=== PATIENT | male | born 1955 | race Caucasian/White ===

== ENCOUNTER 2018-07-05 06:39 | Inpatient (IN) ==
[2018-07-05] MEDS ORDERED: KETOROLAC 30 MG/ML VIAL IV STA (06:55)
[2018-07-05] MEDS ORDERED: OXYCODONE HCL IR 5 MG TAB (IMMEDIATE RELEASE) PO STA (06:55)
[2018-07-05] MEDS ORDERED: CLINDAMYCIN 600 MG in DEXTROSE 5% 50 ML IV SCH (07:00)
--- NOTE | 2018-07-05 07:09 | Emergency Department Note ---
History of Present Illness General Chief complaint: Infection Stated complaint: INFECTION WENT INTO EYE Time Seen by Provider: 07/05/18 06:48 History of Present Illness Maximum Pain Intensity: 8 62-year-old male presents to the ER after just being seen here 4 hours ago for a gum infection which has now spread up to his eye. He was informed that if it should spread up to his eye that he should come back. The patient states that the symptoms just initially started overnight. He has had this once before after a dental cleaning and he had a dental cleaning last Tuesday. The patient states that he has a loose left upper tooth and has known gum disease and food gets stuck in there and then he ends up with an abscess. The patient states that after he went home he tried to sleep but could not. He took hydrocodone without any relief of the pain. He then noticed that the swelling got much worse and was up to his eye and therefore came back to the emergency room. The patient denies any fever, visual changes, dizziness or headache. Home Medications Home Medications Medication Instructions Recorded Confirmed Type atorvastatin 80 mg PO DAILY 07/05/18 07/05/18 History clindamycin HCl 300 mg PO Q8H #29 cap 07/05/18 07/05/18 Rx lisinopril 40 mg PO DAILY 07/05/18 07/05/18 History metformin 1,000 mg PO DAILY 07/05/18 07/05/18 History metoprolol succinate 25 mg PO DAILY 07/05/18 07/05/18 History nifedipine 60 mg PO BID 07/05/18 07/05/18 History Allergies Allergy/AdvReac Type Severity Reaction Status Date / Time celecoxib Allergy Intermediate SOB/ANAPHYL Unverified 07/05/18 01:51 AXIS Penicillins Allergy Mild QUESTIONAL Verified 07/05/18 01:51 INTOLERANCE (PER MD) Past Med/Surg History Medical History HTN (hypertension) (Chronic) Diabetes (Chronic) NSTEMI (non-ST elevated myocardial infarction) (Resolved) Social History Feels Safe at Home: Yes Smoking Status: Never smoker Communication Ability: Effective Visual Impairment: No Limitations Hearing Ability: Normal Review of Systems A total of 10 systems reviewed and were otherwise negative Physical Exam Vital Signs Vital Signs - 24 hr 07/05/18 06:43 07/05/18 08:28 Temperature 37 C Temperature Source Oral Sepsis Recent Fever Within 48 Hours No Sepsis New/Unexplained Change in Mental Status No Sepsis Action Taken by Nursing No Action Required Pulse Rate 92 H Pulse Rate [Left Finger] 68 Pulse Rhythm [Left Finger] Regular Pulse Strength [Left Finger] Normal Respiratory Rate 20 16 Respiratory Effort / Characteristics Non-Labored Respiratory Depth Normal Respiratory Pattern Regular Blood Pressure 180/98 H Blood Pressure [Right Arm] 141/85 H Blood Pressure Mean 125 Blood Pressure Mean [Right Arm] 103 Blood Pressure Position [Right Arm] Sitting Pulse Oximetry 96 97 Oxygen Delivery Method Room Air GENERAL -62-year-old male appearing his stated age who is in no acute distress. MENTAL Status: Alert and oriented x3. HEAD - NC/AT. EYES - PERRL with EOMI bilaterally. MOUTH: Dental decay throughout mouth. There is erythema and edema of the upper gumline with no palpable abscess. NOSE -no erythema or edema noted. PHARYNX: No erythema or edema noted. Airway is adequate. FACE: The patient has diffuse swelling on the left side of the facial cheek up and including the infraorbital rim. This area is tender to palpation and slightly warm to the touch. NECK -supple, mild left anterior cervical lymphadenopathy is noted. No posterior nodes noted. Right side is nontender without lymphadenopathy. LUNGS -clear to auscultation without wheezes rales or rhonchi. CARDIAC: Regular rate and rhythm without murmur. Course Administered Medications Clindamycin Phosphate 600 mg/ (Dextrose) 54 mls @ 100 mls/hr IV ONE YOUSUF Stop: 07/15/18 06:59 Last Infusion: 07/05/18 07:49 Dose: 0 mls/hr Admin: 07/05/18 07:17 Dose: 100 mls/hr Ioversol (Optiray 320 100ml) 94 ml IV ONCE PRN PRN Reason: Interaction Checking Stop: 07/09/18 08:17 Last Admin: 07/05/18 08:21 Dose: 94 ml Discontinued Medications Ketorolac Tromethamine (Toradol) 30 mg IV NOW STA Stop: 07/05/18 06:56 Last Admin: 07/05/18 07:08 Dose: 30 mg Morphine Sulfate (Morphine Sulfate) 4 mg IV NOW STA Stop: 07/05/18 09:12 Last Admin: 07/05/18 09:15 Dose: 4 mg Oxycodone HCl (Roxicodone Immediate Rel) 10 mg PO NOW STA Stop: 07/05/18 06:56 Last Admin: 07/05/18 07:09 Dose: 10 mg Medical Decision Making Differential Diagnosis Cellulitis, orbital cellulitis, periapical abscess Medical Records Attestation: I reviewed the patient's medical records. Home Medications Current Medication List: was personally reviewed by me Laboratory Data Attestation: I reviewed the patient's lab results. Result diagrams: 07/05/18 07:05 07/05/18 07:05 Lab Results 07/05/18 07/05/18 Range/Units 07:05 07:05 WBC 11.44 H (4.8-10.8) K/uL RBC 4.52 L (4.7-6.1) M/uL Hgb 14.5 (14.0-18.0) g/dL Hct 41.9 L (42-52) % MCV 92.7 (80-100) fL MCH 32.1 (25-34) pg MCHC 34.6 (32-36) g/dL RDW Std Deviation 44.5 (36.4-46.3) fL RDW Coeff of Louie 13.1 (11.5-14.5) % Plt Count 193 (130-400) K/uL MPV 10.6 H (7.4-10.4) fL Immature Gran % (Auto) 0.2 % Neut % (Auto) 67.1 % Lymph % (Auto) 25.6 % [place] % (Auto) 5.9 % Eos % (Auto) 0.9 % Baso % (Auto) 0.3 % Immature Gran # (Auto) 0.02 (0.00-0.02) K/uL Neut # (Auto) 7.69 H (1.4-6.5) K/uL Lymph # (Auto) 2.93 (1.2-3.4) K/uL [place]man # (Auto) 0.67 H (0.11-0.59) K/uL Eos # (Auto) 0.10 (0-0.5) K/uL Baso # (Auto) 0.03 (0-0.2) K/uL Sodium 137 (136-145) mmol/L Potassium 3.8 (3.5-5.1) mmol/L Chloride 103 (98-107) mmol/L Carbon Dioxide 24 (21-32) mmol/L Anion Gap 9.0 (3-11) BUN 13 (7-18) mg/dl Creatinine 0.89 (0.6-1.4) mg/dl Est Cr Clr Drug Dosing 104.3 ml/min Est GFR ( Amer) 107.7 Est GFR (Non-Af Amer) 92.9 BUN/Creatinine Ratio 15.0 (10-20) Glucose 117 H (70-99) mg/dl Calcium 8.8 (8.5-10.1) mg/dl Phosphorus 3.7 (2.5-4.9) mg/dl Total Bilirubin 0.6 (0.2-1) mg/dl AST 41 H (15-37) U/L ALT 99 H (12-78) U/L Alkaline Phosphatase 41 L (45-117) U/L Total Protein 7.7 (6.4-8.2) gm/dl Albumin 3.9 (3.4-5.0) gm/dl Globulin 3.8 (2.5-4.0) gm/dl Albumin/Globulin Ratio 1.0 (0.9-2) Imaging Data Attestation: I personally reviewed and interpreted this imaging study as follows : My Impression: Periapical abscess Radiologist's Impression: CT facial bones w con HISTORY: 62 years-old Male Facial swelling acute facial swelling COMPARISON: None available TECHNIQUE: Multiple axial CT images of the facial bones were obtained following the intravenous administration of 94 mL Optiray 320 IV contrast. A dose lowering technique was used consistent with the principals of ALARA. FINDINGS: Moderate subcutaneous edema and skin thickening about the left infraorbital tissues, left cheek and left jaw. No drainable fluid collection. Additionally, there is enlargement and heterogeneous appearance of the left cheek musculature compatible with associated myositis. The parotid, submandibular and sublingual glands appear unremarkable. Pharyngeal fat planes are symmetric and well-maintained. [place] tonsil calcifications noted on the right. Patent airway. No prevertebral soft tissue swelling. Mildly prominent level 1 and level 2 lymph nodes are likely reactive. Bilateral globes and orbits are unremarkable. The imaged intracranial structures demonstrate no acute abnormality. Extensive mixed plaque formation about the bilateral carotid bulbs results in less than 50% stenosis on the left and approximately 70% stenosis on the right. Multilevel facet arthrosis with spondylitic spurring of the cervical spine resulting in multilevel foraminal narrowing. Mastoid air cells and middle ear cavities are clear. Mild mucosal thickening about the paranasal sinuses. No acute facial bone fracture. Multifocal odontogenic disease. Large periapical cyst formation with associated anterior cortical dehiscence involves the left first maxillary bicuspid. Small adjacent peripheral enhancing abscess is noted measuring up to 1.3 cm. With additional periapical cyst formation about the left first maxillary molar. IMPRESSION: 1. Odontogenic disease with large periapical cyst and associated anterior cortical dehiscence involving the left first maxillary bicuspid. Small adjacent peripherally enhancing 1.3 cm abscess. 2. Moderate cellulitis changes about the left face extending from the infraorbital tissues into the left cheek and left jaw. Additionally, there is associated infectious or inflammatory myositis about the left cheek musculature. 3. Mildly prominent level I and level II lymph nodes, likely reactive. 4. Mild paranasal sinus disease. The above report was generated using voice recognition software. It may contain grammatical, syntax or spelling errors. Electronically signed by: Cesar Del Rio M.D. 07/05/2018 8:42 AM Blood Pressure Blood Pressure Findings: Elevated blood pressure MDM Narrative Patient was evaluated. The patient's EMR medication list were reviewed. The patient is a known diabetic. His diabetes is well controlled on metformin. IV access was obtained. CBC and differential and renal profile was ordered. The patient was given clindamycin 600 mg IV. He had already received 300 mg 4 hours ago when he was in the emergency room. Patient was also given Toradol 30 mg IV. The patient does have an allergy to Celexa but states he tolerates ibuprofen, Aleve. The patient was also given OxyIR [address] for pain. CT of the facial bones with IV contrast was ordered to evaluate for abscess/ cellulitis. Labs are reviewed. The patient's white count was slightly elevated at 11,000. Glucose was 117. LFTs were only slightly elevated otherwise labs were unremarkable. CT revealed a large periapical abscess, cellulitis and myositis. I consulted Dr. Olivarez who is willing to see the patient in consult after admission. [facility] was consulted for admission. The patient was informed of the findings and treatment plan. Impression & Plan Periapical abscess with facial involvement Discharge Plan Visit Data Chief Complaint: Infection Stated Complaint: INFECTION WENT INTO EYE ED Provider: Emi Dobbins ED Midlevel Provider: Mehnaz Mayers Discharge Problem: Periapical abscess with facial involvement Patient Disposition: Being Evaluated by Hospitalist Condition: Good Forms Stand Alone Forms: My [facility] Prescriptions Prescriptions: No Action atorvastatin 80 mg tablet 80 mg PO DAILY RF: 0 nifedipine 60 mg tablet extended release 24hr 60 mg PO BID RF: 0 metoprolol succinate 25 mg tablet extended release 24 hr 25 mg PO DAILY RF: 0 lisinopril 40 mg tablet 40 mg PO DAILY RF: 0 metformin 1,000 mg tablet 1,000 mg PO DAILY RF: 0 clindamycin HCl 300 mg capsule 300 mg PO Q8H Qty: 29 RF: 0 Referrals Referrals: Kd Wylie [Primary Care Provider] -
[2018-07-05 07:27] LABS: Basophils # (auto) 0.03 K/uL (0-0.2); Basophils % (auto) 0.3 %; Eosinophils % (auto) 0.9 %; Hematocrit (blood only) 41.9 % (42-52); Hemoglobin 14.5 g/dL (14.0-18.0); Immature Granulocytes # (auto) 0.02 K/uL (0.00-0.02); Immature Granulocytes % (auto) 0.2 %; Lymphocytes # (auto) 2.93 K/uL (1.2-3.4); Lymphocytes % (auto) 25.6 %; Mean Corpuscular Hgb Conc 34.6 g/dL (32-36); Mean Corpuscular Volume 92.7 fL (80-100); Mean Platelet Volume 10.6 fL (7.4-10.4); Monocytes # (auto) 0.67 K/uL (0.11-0.59); Monocytes % (auto) 5.9 %; Neutrophils # (auto) 7.69 K/uL (1.4-6.5); Neutrophils % (auto) 67.1 %; Platelet Count 193 K/uL (130-400); RDW Coefficient of Variation 13.1 % (11.5-14.5); RDW Standard Deviation 44.5 fL (36.4-46.3); Red Blood Count 4.52 M/uL (4.7-6.1); White Blood Count 11.44 K/uL (4.8-10.8)
[2018-07-05 07:57] LABS: Albumin Level 3.9 gm/dl (3.4-5.0); Calcium 8.8 mg/dl (8.5-10.1); Creatinine Clr Calc Pharmacy 104.3 ml/min; Est GFR (African American) 107.7; Est GFR (Non-African American) 92.9; Potassium 3.8 mmol/L (3.5-5.1)
[2018-07-05 08:00] LABS: Bilirubin,Total 0.6 mg/dl (0.2-1); Globulin 3.8 gm/dl (2.5-4.0); Phosphorus 3.7 mg/dl (2.5-4.9); Total Protein 7.7 gm/dl (6.4-8.2)
[2018-07-05] MEDS ORDERED: IOVERSOL 100ml IV PRN (08:18)
--- NOTE | 2018-07-05 08:44 | CT Scan Report ---
CT facial bones w con HISTORY: 62 years-old Male Facial swelling acute facial swelling COMPARISON: None available TECHNIQUE: Multiple axial CT images of the facial bones were obtained following the intravenous admin istration of 94 mL Optiray 320 IV contrast. A dose lowering technique was used consistent with the pr incipals of ALARA. FINDINGS: Moderate subcutaneous edema and skin thickening about the left infraorbital tissues, left cheek and l eft jaw. No drainable fluid collection. Additionally, there is enlargement and heterogeneous appearan ce of the left cheek musculature compatible with associated myositis. The parotid, submandibular and sublingual glands appear unremarkable. Pharyngeal fat planes are symmetric and well-maintained. [place] tonsil calcifications noted on the right. Patent airway. No prevertebral soft tissue swelling. Mildly prominent level 1 and level 2 lymp h nodes are likely reactive. Bilateral globes and orbits are unremarkable. The imaged intracranial st ructures demonstrate no acute abnormality. Extensive mixed plaque formation about the bilateral carot id bulbs results in less than 50% stenosis on the left and approximately 70% stenosis on the right. Multilevel facet arthrosis with spondylitic spurring of the cervical spine resulting in multilevel fo raminal narrowing. Mastoid air cells and middle ear cavities are clear. Mild mucosal thickening about the paranasal sinuses. No acute facial bone fracture. Multifocal odontogenic disease. Large periapic al cyst formation with associated anterior cortical dehiscence involves the left first maxillary bicu spid. Small adjacent peripheral enhancing abscess is noted measuring up to 1.3 cm. With additional pe riapical cyst formation about the left first maxillary molar. IMPRESSION: 1. Odontogenic disease with large periapical cyst and associated anterior cortical dehiscence involvi ng the left first maxillary bicuspid. Small adjacent peripherally enhancing 1.3 cm abscess. 2. Moderate cellulitis changes about the left face extending from the infraorbital tissues into the l eft cheek and left jaw. Additionally, there is associated infectious or inflammatory myositis about t he left cheek musculature. 3. Mildly prominent level I and level II lymph nodes, likely reactive. 4. Mild paranasal sinus disease. The above report was generated using voice recognition software. It may contain grammatical, syntax o r spelling errors. Electronically signed by: Cesar Del Rio M.D. 07/05/2018 8:42 AM
[2018-07-05] MEDS ORDERED: MoRPHine SULFATE 4 MG/ML 1 ML CARP\\VIAL IV STA (09:11)
[2018-07-05] MEDS ORDERED: KETOROLAC TROMETHAMINE 15 MG/ML VIAL IV PRN (10:41)
[2018-07-05] MEDS ORDERED: CONSULT PHARMACY STA ×2 (10:41→13:07)
--- NOTE | 2018-07-05 10:46 | History & Physical Report ---
Date of Service July 05, 2018 Assessment & Plan (1) Periapical abscess with facial involvement: This is a 62yo M with a PMH of HTN, DM II, CAD (s/p stents to LAD and RCA in 2014 at [place]), alcohol and tobacco dependence who presents with worsening facial swelling amd was found to have periapical abscess with cellulitic changes to face. -Seen early this morning at 0100 in ED and given PO Clinda at discharge -Returned a few hours later with worsening edema, facial pain -CT of face with odontogenic disease with large periapical cyst and associated anterior cortical dehiscence involving the left first maxillary bicuspid. Small adjacent peripherally enhancing 1.3 cm abscess. Moderate cellulitis changes about the left face extending from the infraorbital tissues into the left cheek and left jaw. Additionally, there is associated infectious or inflammatory myositis about the left cheek musculature -Hemodynamically stable, afebrile -Dr Olivarez was called by ED provider and will see patient later today -Received dose of IV Clinda in ED -Due to concern for possible Clinda allergy, will continue abx coverage with Vanco, Levaquin and Flagyl -Keep NPO for now, IV fluids -Pain control (2) CAD (coronary artery disease): H/o NSTEMI with stents x 2 in [place] in 2014 -Continue Toprol, aspirin, statin (3) Chronic back pain: Takes Hydrocodone 5mg QID PRN at home (4) Diabetes mellitus, type II: Most recent a1c of 6.4 in July 2017 -Will repeat a1c -Hold metformin -SSI while NPO -BSG checks AC HS (5) HTN (hypertension): Normotensive -Took AM lisinopril and nifedipine prior to arrival (6) Alcohol dependence: Endorses 3-4 glasses of wine daily -Possible etoh withdrawal during previous admission -At risk protocol, MV, folic acid, thiamine DVT Ppx: SCDs for now Code status: DNR per discussion with patient, living will PCP: Zachary Dispo: Plan to return home once medically stable. Patient seen in collaboration with Dr. Gil. Please see addendum. History of Present Illness Chief Complaint: Facial swelling Primary Care Provider: Kd Wylie This is a 62yo M with a PMH of HTN, DM II, CAD (s/p stents to LAD and RCA in 2014 at [place]), alcohol and tobacco dependence who presents with worsening facial swelling. Had dental cleaning last week and developed pain in L upper molar over the weekend. Started to notice swelling in gums and left cheek yesterday afternoon. Came into ED at 0100 with swelling to gums and left side of face and was discharged home on PO Clinda with instruction to return if condition worsens. Returned this morning at 0630 with swelling extending to R eye and constant tight facial pain. Denies fevers, chills, chest pain, shortness of breath or drainage. CT of face with odontogenic disease with large periapical cyst and associated anterior cortical dehiscence involving the left first maxillary bicuspid. Small adjacent peripherally enhancing 1.3 cm abscess. Moderate cellulitis changes about the left face extending from the infraorbital tissues into the left cheek and left jaw. Additionally, there is associated infectious or inflammatory myositis about the left cheek musculature. Hemodynamically stable, afebrile. Dr Olivarez was called by ED provider and will see patient later today. Received dose of IV Clinda. Has allergy to PCN (rash as a child). Allergies Allergy/AdvReac Type Severity Reaction Status Date / Time celecoxib Allergy Intermediate SOB/ANAPHYL Unverified 07/05/18 01:51 AXIS Penicillins Allergy Mild QUESTIONAL Verified 07/05/18 01:51 INTOLERANCE (PER MD) Home Medications Home Medications Medication Instructions Recorded Confirmed Type aspirin 81 mg PO DAILY 07/05/18 07/05/18 History atorvastatin 80 mg PO HS 07/05/18 07/05/18 History clindamycin HCl 300 mg PO Q8H #29 cap 07/05/18 07/05/18 Rx hydrocodone-acetaminophen 1 tab PO QID PRN 07/05/18 07/05/18 History lisinopril 40 mg PO DAILY 07/05/18 07/05/18 History metformin 1,000 mg PO DAILY 07/05/18 07/05/18 History metoprolol succinate 25 mg PO DAILY 07/05/18 07/05/18 History nifedipine 60 mg PO BID 07/05/18 07/05/18 History Past Med/Surg History Medical History Chronic back pain (Chronic) CAD (coronary artery disease) (Chronic) Diabetes mellitus, type II (Chronic) HTN (hypertension) (Chronic) NSTEMI (non-ST elevated myocardial infarction) (Resolved) Surgical History History of partial colectomy (Resolved) Family History Father CAD (coronary artery disease) CHF (congestive heart failure) Mother Breast cancer Colon cancer Social History Current Living Situation: Spouse Other Information That Helps Us Care for You: No Feels Safe at Home: Yes Safety Concerns: Feels Safe At This Time Smoking Status: Current every day smoker Tobacco Type: cigarettes Cigarettes per Day: 30 Do You Dip or Chew Tobacco: No Second Hand Exposure: No Tobacco Cessation Education Requested by Patient: No Hx Alcohol Use: Yes Alcohol type: wine Alcohol Intake Frequency: 3 or more drinks per day Hx Substance Use: No Beliefs That Will Affect Care: None Preferred Language: Pry[place]in[place] Communication Ability: Effective Enrollment Eligibility Representative Required: No Review of Systems All systems reviewed & are unremarkable except as noted in HPI & below Physical Exam 2 Vital Signs (Past 24 Hours): Last Vital Signs Temp 37 C 07/05/18 06:43 Pulse 68 07/05/18 08:28 Resp 16 07/05/18 08:28 BP 141/85 H 07/05/18 08:28 Pulse Ox 97 07/05/18 08:28 Physical Exam: General Appearance: WD/WN, no acute distress Head: normocephalic, atraumatic Eyes: normal inspection, PERRL, EOMI ENT: hearing grossly normal, poor dentition, swelling from left side of mouth to cheek and up and including the infraorbital rim. Warm and erythematous, no drainage. Neck: supple, no JVD, L cervical and mandibular lymphadenopathy Respiratory/Chest: lungs clear to auscultation. No wheezes, rales or rhonci. No respiratory distress or accessory muscle use Cardiovascular: regular rate, rhythm, no murmur, normal peripheral pulses Abdomen/GI: normal bowel sounds, soft, non-tender to palpation Extremities/Musculoskelatal: normal inspection, no calf tenderness, normal capillary refill, no pedal edema Neurologic/Psych: alert, normal mood/affect, oriented x 3 Skin: normal color, warm/dry. Results & Data Laboratory Results Short CBC 07/05/18 Range/Units 07:05 WBC 11.44 H (4.8-10.8) K/uL Hgb 14.5 (14.0-18.0) g/dL Hct 41.9 L (42-52) % Plt Count 193 (130-400) K/uL BMP 07/05/18 07:05 Sodium 137 Potassium 3.8 Chloride 103 Carbon Dioxide 24 BUN 13 Creatinine 0.89 Glucose 117 H Calcium 8.8 Liver Function 07/05/18 Range/Units 07:05 Total Bilirubin 0.6 (0.2-1) mg/dl AST 41 H (15-37) U/L ALT 99 H (12-78) U/L Alkaline Phosphatase 41 L (45-117) U/L Albumin 3.9 (3.4-5.0) gm/dl Diagnostic Findings Face CT: IMPRESSION: 1. Odontogenic disease with large periapical cyst and associated anterior cortical dehiscence involving the left first maxillary bicuspid. Small adjacent peripherally enhancing 1.3 cm abscess. 2. Moderate cellulitis changes about the left face extending from the infraorbital tissues into the left cheek and left jaw. Additionally, there is associated infectious or inflammatory myositis about the left cheek musculature. 3. Mildly prominent level I and level II lymph nodes, likely reactive. 4. Mild paranasal sinus disease. Supervising Physician Co-Signing Physician Notes Patient is a 62 yr male with history of DM II, CAD, alcohol/Tobacco use and other problems presents with history of ongoing tooth pain since last Tuesday and currently has left sided facial swelling, pain and left eye pressure like sensation. He had dental cleaning 1 week ago. Patient has poor dental hygiene. Facial CT is suggestive of Odontogenic disease with large periapical cyst, involvement of left first maxillary bicuspid. Also noted small adjacent peripherally enhancing 1.3 cm abscess., Moderate cellulitis. Patient also reports mild trouble with swallowing because of the swelling. Denies odynophgia , change in vision, chest pain, dyspnea. On Exam patient is moderately built, no apparent distress, + Poor oral hygiene, Left facial swelling, +tender, mild erythema, lungs CTA, S2, S2, No murmur, Abd soft, no focal deficits, no pedal edema. Patient is thought to have Periapical abscess/Facial cellulitis secondary to poor oral hygiene. Patient will be kept NPO, start on IV fluids, IV Abx. Maxillofacial surgery is consulted. Pain control. Hold Aspirin for possible procedure today. I personally reviewed the record. Patient is interviewed and examined at bedside. Patient's care is coordinated with Anna Loving PA-C. Please refer to the documentation above for details of patient's presentation and for discussion of other issues.
[2018-07-05] MEDS ORDERED: VANCOMYCIN CONSULT ACTIVE PRN (11:22)
[2018-07-05] MEDS ORDERED: metroNIDAZOLE 500 MG/100 ML BAG IV ONE (11:30)
[2018-07-05] MEDS ORDERED: VANCOMYCIN HCL 2,500 MG in SODIUM CHLORIDE 0.9% 500 ML IV ONE (11:30)
[2018-07-05] MEDS ORDERED: LEVOFLOXACIN/D5W 500 MG/100 ML BAG IV ONE (11:30)
[2018-07-05] MEDS ORDERED: ONDANSETRON INJ 2 MG/ML 2 ML VIAL IV PRN (12:07)
[2018-07-05] MEDS ORDERED: MoRPHine SULFATE 2 MG/ML CARP IV PRN ×2 (12:07→12:18)
[2018-07-05] MEDS ORDERED: LORazepam 1 MG TAB PO PRN (12:16)
[2018-07-05] MEDS ORDERED: GLUCAGON FOR INJ 1 MG VIAL SQ PRN (12:19)
[2018-07-05] MEDS ORDERED: CARBOHYDRATES FOR HYPOGLYCEMIA PO PRN (12:19)
[2018-07-05] MEDS ORDERED: GLUCOSE 40% GEL 15 GM TUBE PO PRN (12:19)
[2018-07-05] MEDS ORDERED: DEXTROSE 50% 50 ML SYRINGE IV PRN (12:19)
[2018-07-05] MEDS ORDERED: GLUCOSE 10 TABS/TUBE PO PRN (12:19)
[2018-07-05] MEDS ORDERED: MoRPHine SULFATE 4 MG/ML 1 ML CARP\\VIAL ONE (13:06)
[2018-07-05] MEDS: SODIUM CHLORIDE 0.9% 1000ML 1,000 ML IV SCH ×2 (13:12→21:40)
[2018-07-05] MEDS ORDERED: DAPTOMYCIN CONSULT ACTIVE PRN (14:12)
--- NOTE | 2018-07-05 14:27 | Infectious Disease Consult ---
Date of Consultation July 05, 2018 Assessment & Plan (1) Periapical abscess with facial involvement: no contraindication to Dapto use, suggest Dapto and IV clinda. with h/o etoh abuse, flagyl secondary choice for anaerobic coverage. follow cultures, warm compress to area. surgery eval pending. (2) Facial cellulitis: History of Present Illness Attending Physician: Elian Gil MD pt admitted with worsening left sided facial pain and swelling. pt had dental cleaning last Tuesday, stated left facial pain began Tuesday and worsened through weekend. yesterday evening he noted swelling, came to Er, was d/c on clinda for facial cellulitis, did not take abx post d/c but had increased pain and swelling and returned to ER hours later, ct showed maxillary erosion and abscess with diffuse facial cellulitis. Pt was placed on vanco, levaquin and woodson. tolerating well. ID consulted for Dapto approval. subjective fevers at home , no fever since admission. no n/v/d/abd pain, no drainage in mouth. no maki, no visual changes. allergy to pcn only. states increased pain from admission but otherwise no complaints. Surgery eval pending. Allergies Allergy/AdvReac Type Severity Reaction Status Date / Time celecoxib Allergy Intermediate SOB/ANAPHYL Unverified 07/05/18 01:51 AXIS Penicillins Allergy Mild QUESTIONAL Verified 07/05/18 01:51 INTOLERANCE (PER MD) Home Medications Home Medications Medication Instructions Recorded Confirmed Type aspirin 81 mg PO DAILY 07/05/18 07/05/18 History atorvastatin 80 mg PO HS 07/05/18 07/05/18 History clindamycin HCl 300 mg PO Q8H #29 cap 07/05/18 07/05/18 Rx hydrocodone-acetaminophen 1 tab PO QID PRN 07/05/18 07/05/18 History lisinopril 40 mg PO DAILY 07/05/18 07/05/18 History metformin 1,000 mg PO DAILY 07/05/18 07/05/18 History metoprolol succinate 25 mg PO DAILY 07/05/18 07/05/18 History nifedipine 60 mg PO BID 07/05/18 07/05/18 History Patient History Medical History Chronic back pain (Chronic) CAD (coronary artery disease) (Chronic) Diabetes mellitus, type II (Chronic) HTN (hypertension) (Chronic) NSTEMI (non-ST elevated myocardial infarction) (Resolved) Surgical History History of partial colectomy (Resolved) Family History Father CAD (coronary artery disease) CHF (congestive heart failure) Mother Breast cancer Colon cancer Social History Current Living Situation: Spouse Other Information That Helps Us Care for You: No Feels Safe at Home: Yes Safety Concerns: Feels Safe At This Time Smoking Status: Current every day smoker Tobacco Type: cigarettes Cigarettes per Day: 30 Do You Dip or Chew Tobacco: No Second Hand Exposure: No Tobacco Cessation Education Requested by Patient: No Hx Alcohol Use: Yes Alcohol type: wine Alcohol Intake Frequency: 3 or more drinks per day Hx Substance Use: No Beliefs That Will Affect Care: None Preferred Language: Afghan Communication Ability: Effective Comparison Shopper Required: No Review of Systems all remaining ros reviewed and are negative Physical Exam 2 Vital Signs (Past 24 Hours): Last Vital Signs Temp 36.6 C 07/05/18 12:07 Pulse 67 07/05/18 12:07 Resp 18 07/05/18 12:07 BP 138/82 07/05/18 12:07 Pulse Ox 92 07/05/18 12:07 Constitutional: WD/WN, vitals as above Eyes: PERRL, conjunctivae normal, anicteric sclerae ENMT: Nose: + facial exam abnormality, + face asymmetric, + facial edema and + facial tenderness; nasal mucous membranes not dry Mouth: + oropharynx abnormality Neck: normal visual inspection Respiratory: normal respiratory effort, lungs clear to auscultation Cardiovascular: RRR, no murmur, no edema Gastrointestinal (Abdomen): normal bowel sounds, soft, nontender, no hepatosplenomegaly Musculoskeletal: no cyanosis or clubbing, extremities motor strength 5/5 Skin: no rashes, warm and dry left face with increased non pitting edema, warmth, erythema, no drainage, emir orbial edema, tender to palpation Psychiatric: A+Ox3, euthymic affect
[2018-07-05] MEDS: DAPTOmycin 300 MG in SYRINGE 0 ML IV SCH (15:28)
[2018-07-05] MEDS ORDERED: INSULIN ASPART 100 UNITS/ML 3 ML PEN SC SCH (16:30)
[2018-07-05] MEDS: KETOROLAC 30 MG/ML VIAL IV PRN ×2 (17:21→23:37)
[2018-07-05] MEDS: INSULIN ASPART 100 UNITS/ML 3 ML PEN SC SCH ×2 (17:55→23:45)
[2018-07-05] MEDS: metroNIDAZOLE 500 MG/100 ML BAG IV SCH (19:46)
[2018-07-05] MEDS ORDERED: ATORVASTATIN 40 MG TAB PO SCH (21:00)
[2018-07-05] MEDS: NIFEdipine EXTENDED REL 30 MG TABCR PO SCH (21:41)
--- NOTE | 2018-07-05 23:16 | Consultation Report ---
DATE OF CONSULTATION: 07/05/2018 HISTORY: Darren is a 62-year-old white male who presented to the Emergency Room early this morning with a left facial cellulitis. At the time that he was evaluated, there was very mild swelling, but there was some intense pain. The patient was not on any antibiotics after having a dental cleaning approximately 1 week ago until the Emergency Room staff placed him on antibiotics. He was then discharged. Approximately 4 hours later, the patient returned to the Emergency Room with acute swelling of the left cheek and periorbital area with a lot of edema to the lower eyelid and upper eyelid. The patient was in a great deal of pain. He had a lot of swelling under his upper left lip as well as the cheek. Because of the very rapid increase in swelling, a CT scan was taken and this showed a nice size fluid collection, i.e., abscess of the left cheek, most likely coming from infected upper teeth #12 and #13. The patient was admitted to the hospitalist service and I was consulted to evaluate Mr. Cortes. I saw Mr. Cortes in room 288 at approximately 5:15 p.m. on 07/05/2018. The patient was complaining of pain on a scale of 1-10 of about a 9. He was being kept comfortable with medication. The patient is on IV antibiotics and it is significant that he is allergic to penicillin and has a history of diabetes which is controlled by oral medications. He told me that his A1c that was done last year was running around 6-6.2. An A1c is ordered for tomorrow. I discussed with the patient that we will need to take him to the operating room, place him under general anesthesia, do a drainage of the left cheek abscess, as well as extracting the teeth #12 and #13. I will also be draining a subperiosteal abscess involving the area between tooth #10 and tooth #14. The whole mucobuccal fold is quite edematous and painful. The patient does have some trismus, due to the infection he cannot close his teeth together, and he is in distress. I discussed the case with the hospitalist enhanced environmental operator. He is aware that we will be doing the operation tomorrow morning. I am not sure of the time yet as I will find out when I call the OR tomorrow morning at approximately 7:00 a.m. At that time, the I and D will be performed under general anesthesia. The patient would then go back to the room where he would continue to have his IV antibiotics and after approximately 12-24 hours, if he shows improvement, we will then be able to send him home on oral antibiotics with followup. At this time, the consent was signed. The patient has a very good understanding of what needs to be done tomorrow morning and he is aware of the procedure for tomorrow morning. The patient gives a history of having some coronary artery disease where he had 2 stents placed at [facility] in 2014. He gives a history of chronic back pain. He is a type 2 diabetic, where his last A1c was 6.4. He is on metformin, which is being held at the present time since he is n.p.o. His blood pressure is relatively normal. He is on blood pressure medication for that. 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 He drinks about 3-4 glasses of wine daily. It is at this time that the patient will be evaluated by the hospitalist as well as through my service to ensure that the infection is adequately drained and that he is controlled on the antibiotics. A CT scan was taken and demonstrated the abscess formation of the left cheek, which we will drain tomorrow. At this time, I find the patient to be stable to undergo the procedure tomorrow and then we will follow him to ensure that the infection is well controlled. I will have his dentist make sure that up to date dental X rays are taken or if done reviewed to insure no other teeth are in need of extractions. Moris understands we need to drain the infection, get the teeth out, follow up with me and his general dentist to ensure that his facial infection is well controlled and all teeth are free of infection. Thank you very much for allowing me to participate in the care of your patients. I will follow the patient with you and plan for discharge with oral antibiotics and arrange for follow up postoperatively with me and his dentist. LUKE
[2018-07-06] MEDS: metroNIDAZOLE 500 MG/100 ML BAG IV SCH ×3 (04:59→20:43)
[2018-07-06 05:46] LABS: Hemoglobin 13.6 g/dL (14.0-18.0); Mean Corpuscular Volume 93.9 fL (80-100); Mean Platelet Volume 10.3 fL (7.4-10.4); Platelet Count 159 K/uL (130-400); RDW Coefficient of Variation 13.2 % (11.5-14.5); RDW Standard Deviation 44.8 fL (36.4-46.3); Red Blood Count 4.26 M/uL (4.7-6.1); White Blood Count 8.41 K/uL (4.8-10.8)
[2018-07-06 06:07] LABS: Estimated Average Glucose 140 mg/dl
[2018-07-06 06:16] LABS: BUN Creatinine Ratio 13.8 (10-20); Calcium 8.9 mg/dl (8.5-10.1); Creatinine Clr Calc Pharmacy 128.6 ml/min; Est GFR (African American) 117.5; Est GFR (Non-African American) 101.4
[2018-07-06] MEDS: INSULIN ASPART 100 UNITS/ML 3 ML PEN SC SCH ×3 (06:51→17:54)
[2018-07-06] MEDS: KETOROLAC 30 MG/ML VIAL IV PRN (07:49)
[2018-07-06] MEDS: SODIUM CHLORIDE 0.9% 1000ML 1,000 ML IV SCH ×2 (07:56→16:18)
--- NOTE | 2018-07-06 08:00 | Anesthesiology Consultation ---
Date of Service July 06, 2018 Assessment & Plan (1) Encounter for pre-operative examination: Chart Review Chart Review: Acceptable Risk for Surgery and Patient NOT seen in Pre Admission Testing Pt denies any recent cardiac issues since his stents placement in 2014. Has been active, playing tennis, without FAY, CP. Has never had to use his NTG. No recent CP, SOB, GERD syptoms or n/v. Consults Requested none Pt has been evaluated by ID and currently on antibiotics for his facial cellulitis ASA [id number] Proposed Anesthesia Anesthesia Type: General Risk / Benefits Reviewed With: PT / POA / Parent / Guardian, Accepts Plan and Informed Consent Obtained Additional Comments: Plan of anesthesia including possible awake fiberoptic intubation was explained to patient. All risks/benefits were explained and all questions were anwered. Consent was signed. NPO Date Last Intake of Fluids: 07/05/18 Time Last Intake of Fluids: 22:00 Date Last Intake of Solids: 07/04/18 Time Last Intake of Solids: 18:30 History Surgery Operation Date: 07/06/18 11:40 Proposed Procedures p 2 Teeth Extractions - Raulito Olivarez DMD s Left Face Incision and Drainage - Raulito Olivarez DMD Height/Weight Height: 5 ft 10 in Weight: 98.1 kg Allergies Allergy/AdvReac Type Severity Reaction Status Date / Time celecoxib Allergy Intermediate SOB/ANAPHYL Unverified 07/05/18 01:51 AXIS Penicillins Allergy Mild QUESTIONAL Verified 07/05/18 01:51 INTOLERANCE (PER MD) Medications Home Medications Medication Instructions Recorded Confirmed Last Taken aspirin 81 mg PO DAILY 07/05/18 07/05/18 Unknown atorvastatin 80 mg PO HS 07/05/18 07/05/18 Unknown clindamycin HCl 300 mg PO Q8H #29 cap 07/05/18 07/05/18 Unknown hydrocodone-acetaminophen 1 tab PO QID PRN 07/05/18 07/05/18 Unknown lisinopril 40 mg PO DAILY 07/05/18 07/05/18 Unknown metformin 1,000 mg PO DAILY 07/05/18 07/05/18 Unknown metoprolol succinate 25 mg PO DAILY 07/05/18 07/05/18 Unknown nifedipine 60 mg PO BID 07/05/18 07/05/18 Unknown Active Medications Generic Name Dose Route Start Last Admin Trade Name Freq PRN Reason Stop Dose Admin Folic Acid 1 mg 07/06/18 09:00 07/06/18 09:19 Folvite PO 08/05/18 08:59 Not Given QAM YOUSUF Metronidazole 500 mg in 100 mls @ 100 mls/hr 07/05/18 20:00 07/06/18 11:39 Flagyl IV 07/15/18 19:59 100 mls/hr Q8H YOUSUF Administration Sodium Chloride 1,000 mls @ 100 mls/hr 07/05/18 12:07 07/06/18 07:56 Nss 1000ml IV 08/04/18 12:06 100 mls/hr .Q10H YOUSUF Administration Daptomycin 300 mg/ Syringe 6 mls @ 0 mls/min 07/05/18 15:00 07/05/18 15:28 IV 07/15/18 14:59 3 mls/min DAILY@1500 YOUSUF Administration Protocol Insulin Aspart 0 units 07/05/18 18:00 07/06/18 12:00 Novolog Flexpen SC 08/04/18 17:59 Not Given Q6 YOUSUF Ketorolac Tromethamine 30 mg 07/05/18 10:42 07/06/18 07:49 Toradol IV 07/10/18 10:40 30 mg Q6H PRN Administration Pain Lisinopril 40 mg 07/06/18 09:00 07/06/18 09:19 Zestril PO 08/05/18 08:59 Not Given DAILY YOUSUF Metoprolol Succinate 25 mg 07/06/18 09:00 07/06/18 09:19 Toprol Xl PO 08/05/18 08:59 25 mg DAILY YOUSUF Administration Nifedipine 60 mg 07/05/18 21:00 07/06/18 09:19 Procardia Xl PO 08/04/18 20:59 60 mg BID YOUSUF Administration Thiamine HCl 100 mg 07/06/18 09:00 07/06/18 09:19 Vitamin B-1 PO 08/05/18 08:59 Not Given QAM YOUSUF Beta Nahed Beta Nahed Taken Within 24 Hours: Yes Past Medical History Medical History Chronic back pain (Chronic) CAD (coronary artery disease) (Chronic) Diabetes mellitus, type II (Chronic) HTN (hypertension) (Chronic) NSTEMI (non-ST elevated myocardial infarction) (Resolved) 2014 Diverticulitis Hyperlipidemia Past Family History Family History Father CAD (coronary artery disease) CHF (congestive heart failure) Mother Breast cancer Colon cancer Past Surgical History Surgical History History of partial colectomy (Resolved) S/P cardiac cath with 2 stents in 2015 S/P left knee arthroscopy Past Anesthesia History No Hx of Anesthesia Complications and No Family Hx of Anesthesia Complications History of PONV No Motion Sickness Screening History of Motion Sickness: No Social History Smoking Status: Current every day smoker tobacco type: cigarettes Smoking cigarettes per day: 30+ since age 20 Do You Dip or Chew Tobacco: No Hx Alcohol Use: Yes Alcohol type: wine alcohol intake frequency: 3 or more drinks per day Alcohol Intake Frequency Comment: 1 red wine a day Hx Substance Use: No Exercise / Class Metabolic Activity II 4-5 Yardwork/Stairs/Walk up hill Negative for chest pain or shortness of breath. Review of Systems Patient denies active symptoms of GERD. Physical Exam Vital Signs Last Vital Signs Temp 36.7 C 07/06/18 11:39 Pulse 68 07/06/18 11:39 Resp 18 07/06/18 11:39 BP 128/81 07/06/18 11:39 Pulse Ox 94 07/06/18 11:39 Constitutional + obese ENMT Mouth: + small oral opening (Due to pain from the cellulitis); no TMJ abnormality and no TMJ clicking Thyromental Distance: > or= 3.5 Finger Breadths Mallampati Class: III Mouth / Teeth: 2 1. Loose Neck neck extension not limited Pt with left facial swelling going from the left neck to left face up to left periorbital area Respiratory Auscultation: lungs clear to auscultation bilaterally Cardiovascular Rate/Rhythm: regular rate and regular rhythm Musculoskeletal Spine: normal cervical ROM and no pain with cervical ROM Psychiatric Orientation: alert and oriented x 3 Testing Echocardiogram Date: 08/23/14 EF: 55-60% LV Function: normal Other Findings: + LVH (moderate) Valvular Disease: + MR (Mild MR) Inferior base appears hypokinetic Other Testing CT 07/05/18 FINDINGS: Moderate subcutaneous edema and skin thickening about the left infraorbital tissues, left cheek and left jaw. No drainable fluid collection. Additionally, there is enlargement and heterogeneous appearance of the left cheek musculature compatible with associated myositis. The parotid, submandibular and sublingual glands appear unremarkable. Pharyngeal fat planes are symmetric and well-maintained. Bunkie tonsil calcifications noted on the right. Patent airway. No prevertebral soft tissue swelling. Mildly prominent level 1 and level 2 lymph nodes are likely reactive. Bilateral globes and orbits are unremarkable. The imaged intracranial structures demonstrate no acute abnormality. Extensive mixed plaque formation about the bilateral carotid bulbs results in less than 50% stenosis on the left and approximately 70% stenosis on the right. Multilevel facet arthrosis with spondylitic spurring of the cervical spine resulting in multilevel foraminal narrowing. Mastoid air cells and middle ear cavities are clear. Mild mucosal thickening about the paranasal sinuses. No acute facial bone fracture. Multifocal odontogenic disease. Large periapical cyst formation with associated anterior cortical dehiscence involves the left first maxillary bicuspid. Small adjacent peripheral enhancing abscess is noted measuring up to 1.3 cm. With additional periapical cyst formation about the left first maxillary molar. IMPRESSION: 1. Odontogenic disease with large periapical cyst and associated anterior cortical dehiscence involving the left first maxillary bicuspid. Small adjacent peripherally enhancing 1.3 cm abscess. 2. Moderate cellulitis changes about the left face extending from the infraorbital tissues into the left cheek and left jaw. Additionally, there is associated infectious or inflammatory myositis about the left cheek musculature. 3. Mildly prominent level I and level II lymph nodes, likely reactive. 4. Mild paranasal sinus disease. Laboratory Results 07/06/18 05:33 07/06/18 05:33 Hemoglobin A1c 6.5 % (4.5-5.6) H 07/06/18 05:33 07/06/18 07/06/18 11:45 06:35 POC Glucose 123 H 126 H
[2018-07-06] MEDS: METOPROLOL SUCC 25MG EXT REL TAB PO SCH (09:19)
[2018-07-06] MEDS: NIFEdipine EXTENDED REL 30 MG TABCR PO SCH ×2 (09:19→20:52)
[2018-07-06] MEDS: THIAMINE HCL 100 MG TAB PO SCH (09:19)
[2018-07-06] MEDS: LISINOPRIL 40 MG TAB PO SCH (09:19)
[2018-07-06] MEDS: FOLIC ACID 1 MG TAB PO SCH (09:19)
[2018-07-06] MEDS ORDERED: MIDAZOLAM HCL 1 MG/ML 2ML VIAL ONE (11:52)
[2018-07-06] MEDS ORDERED: fentaNYL citrate 100 MCG/2 ML VIAL ONE ×2 (11:52→13:01)
[2018-07-06] MEDS ORDERED: LEVOFLOXACIN/D5W 500 MG/100 ML BAG IV SCH (12:00)
[2018-07-06] MEDS ORDERED: LEVOFLOXACIN/D5W 750 MG/150 ML BAG IV SCH (12:00)
[2018-07-06] MEDS ORDERED: BUPIVACAINE/EPINEPHRINE 0.5% 1:200,000 1.8 ML CARP ONE (12:25)
--- NOTE | 2018-07-06 12:41 | History & Physical Bridge Note ---
Date of Service July 06, 2018 History & Physical Bridge Note I have examined the patient, reviewed the History & Physical and in the interval since the performance of the History & Physical I have noted the following changes of clinical significance: no changes noted swelling has now localized to upper left side. Plan I&D / ext 12 and 13 today.
[2018-07-06] MEDS ORDERED: LIDOCAINE HCL 2% 2 ML VIAL/AMP(20MG/ML) INFIL ONE (13:05)
[2018-07-06] MEDS ORDERED: PROPOFOL IV EMULSION 10 MG/ML 20 ML VIAL IV ONE (13:05)
[2018-07-06] MEDS ORDERED: SUCCINYLCHOLINE CHLORIDE 20 MG/ML 10 ML VIAL ONE (13:06)
[2018-07-06] MEDS ORDERED: ROCURONIUM BROMIDE 10 MG/ML 5 ML VIAL ONE (13:06)
[2018-07-06] MEDS ORDERED: ONDANSETRON INJ 2 MG/ML 2 ML VIAL ONE (13:06)
[2018-07-06] MEDS ORDERED: DEXAMETHASONE SOD INJ 4 MG/ML VIAL ONE (13:06)
[2018-07-06] MEDS ORDERED: ONDANSETRON INJ 2 MG/ML 2 ML VIAL IV PRN (13:08)
[2018-07-06] MEDS ORDERED: ePHEDrine sulfate 50 MG/ML AMP IV PRN (13:08)
[2018-07-06] MEDS ORDERED: ATROPINE SULFATE 0.1 MG/ML 10ML SYR IV PRN (13:08)
--- NOTE | 2018-07-06 13:18 | Post Operative Brief Note ---
Immediate Post Op Note v1 Date of Surgery July 06, 2018 Pre & Post Diagnosis Operation Date: 07/06/18 11:40 Pre-op diagnosis acute periorbital and infraorbital cellulitices left side abscessed # 12 and # 13 Post Op Diagnosis Same as above Procedure Operation Date: 07/06/18 11:40 I&D of left side infected infraorbial and periorbital space infection and extraction of # 12 and # 13 Blood loss less then 5 cc Surgeon Raulito Olivarez, DMD Stove Carriage Operator none Estimated Blood Loss 5 Findings Consistent with Post-Op Diagnosis
[2018-07-06] MEDS: fentaNYL citrate 100 MCG/2 ML VIAL IV PRN ×3 (13:57→14:07)
--- NOTE | 2018-07-06 14:03 | Infectious Disease Progress Nt ---
Date of Service July 06, 2018 Assessment & Plan (1) Periapical abscess with facial involvement: continue IV abx for now, follow blood and OR cultures (2) Facial cellulitis: Subjective pt in OR for I&D. blood cultures pending, OR cultures pending. wbc improved to 8. on dapto, levaquin and flagyl. tolerating afebrile overnight Physical Exam 2 Vital Signs (Past 24 Hours): Last Vital Signs Temp 36.9 C 07/06/18 13:33 Pulse 97 H 07/06/18 13:33 Resp 16 07/06/18 13:33 BP 147/89 H 07/06/18 13:33 Pulse Ox 95 07/06/18 13:33 Results & Data Laboratory Results Microbiology 07/06/18 Unknown Face Gram Stain - Final
[2018-07-06] MEDS: HYDROmorphone INJ 1 MG/ML SYRINGE IV PRN ×8 (14:20→15:43)
[2018-07-06] MEDS: HYDROmorphone INJ 0.5 MG/0.5 ML SYR IV PRN ×4 (14:41→18:41)
--- NOTE | 2018-07-06 15:14 | Hospitalist Progress Note ---
Date of Service July 06, 2018 Assessment & Plan (1) Periapical abscess with facial involvement: This is a 62yo M with a PMH of HTN, DM II, CAD (s/p stents to LAD and RCA in 2014 at [place]), alcohol and tobacco dependence who presents with worsening facial swelling amd was found to have periapical abscess with cellulitic changes to face. -Seen early this morning at 0100 in ED and given PO Clinda at discharge -Returned a few hours later with worsening edema, facial pain -CT of face with odontogenic disease with large periapical cyst and associated anterior cortical dehiscence involving the left first maxillary bicuspid. Small adjacent peripherally enhancing 1.3 cm abscess. Moderate cellulitis changes about the left face extending from the infraorbital tissues into the left cheek and left jaw. Additionally, there is associated infectious or inflammatory myositis about the left cheek musculature -Hemodynamically stable, afebrile -Started on intravenous Vanco Levaquin and Flagy -Appreciate ID input and recommendation -Antibiotics have been changed to daptomycin and Flagyl -Appreciate input from faciomaxillary surgery -Keep NPO for now, IV fluids -Has been feeling better since this morning -Will have surgery sometime today (2) CAD (coronary artery disease): H/o NSTEMI with stents x 2 in [place] in 2014 -Continue Toprol, aspirin, statin -No acute symptoms (3) Chronic back pain: Takes Hydrocodone 5mg QID PRN at home (4) Diabetes mellitus, type II: Most recent a1c of 6.4 in July 2017 -Will repeat a1c -Hold metformin -SSI while NPO -BSG checks AC HS (5) HTN (hypertension): Normotensive -Took AM lisinopril and nifedipine prior to arrival (6) Alcohol dependence: Endorses 3-4 glasses of wine daily -Possible etoh withdrawal during previous admission -At risk protocol, MV, folic acid, thiamine DVT Ppx: SCDs for now Code status: DNR per discussion with patient, living will PCP: Zachary Dispo: Plan to return home once medically stable. Patient seen in collaboration with Dr. Gil. Please see addendum. Subjective He is a 62yo M with a PMH of HTN, DM II, CAD (s/p stents to LAD and RCA in 2014 at [place]), alcohol and tobacco dependence who presents with worsening facial swelling amd was found to have periapical abscess with cellulitis and abscess left cheek. 07/06 The patient was seen and examined in medical His symptoms of left facial swelling and pain are improved He denies any fever and/or chills He has been able to swallow liquids Is going to have surgery sometime this afternoon Physical Exam 2 Vital Signs (Past 24 Hours): Last Vital Signs Temp 36.8 C 07/06/18 15:04 Pulse 81 07/06/18 15:04 Resp 17 07/06/18 15:04 BP 160/93 H 07/06/18 15:04 Pulse Ox 94 07/06/18 15:04 Physical Exam: Lying in bed with minimal distress and very anxious Constitutional: WD/WN, vitals as above Eyes: + eyelid abnormality (Left lower eyelid swelling and some redness) ENMT: Mouth: + lip abnormality and + oral mucosal abnormality (Swelling and redness involving the left buccal mucosa) Neck: + submandibular swelling (On the left side) and + neck tender (With fluctuation and warmth) Cardiovascular: Rate/Rhythm: regular rate and regular rhythm Heart Sounds: normal S1 and normal S2 Gastrointestinal (Abdomen): normal bowel sounds, soft, nontender, no hepatosplenomegaly Neurologic: Alert, awake and oriented x3 Results & Data Laboratory Results Short CBC 07/06/18 Range/Units 05:33 WBC 8.41 (4.8-10.8) K/uL Hgb 13.6 L (14.0-18.0) g/dL Hct 40.0 L (42-52) % Plt Count 159 (130-400) K/uL BMP 07/06/18 05:33 Sodium 141 Potassium 4.0 Chloride 109 H Carbon Dioxide 28 BUN 10 Creatinine 0.72 Glucose 116 H Calcium 8.9 Cardiac Enzymes 07/06/18 Range/Units 05:33 Total Creatine Kinase 274 (39-308) U/L Medications Administered Current Inpatient Medications Atorvastatin Calcium (Lipitor) 80 mg PO HS YOUSUF Stop: 08/04/18 20:59 Atropine Sulfate (Atropine Sulfate) 0.5 mg IV Q1M PRN PRN Reason: PACU Use-HR<40 &/or Bradycardi Stop: 07/06/18 18:08 Dextrose (Dextrose 50%) 25 - 50 ml IV UD PRN; Protocol PRN Reason: Hypoglycemia Protocol Stop: 08/04/18 12:18 Ephedrine Sulfate (Ephedrine Sulfate) 5 mg IV Q5M PRN PRN Reason: PACU Use Only-SBP<90 mmHg Stop: 07/06/18 18:08 Fentanyl Citrate (Fentanyl Citrate) 25 mcg IV Q5M PRN PRN Reason: PACU Use Only-Pain Stop: 07/06/18 18:09 Last Admin: 07/06/18 14:07 Dose: 25 mcg Folic Acid (Folvite) 1 mg PO QAM YOUSUF Stop: 08/05/18 08:59 Last Admin: 07/06/18 09:19 Dose: Not Given Glucagon (Glucagen) 1 mg SQ UD PRN; Protocol PRN Reason: Hypoglycemia Protocol Stop: 08/04/18 12:18 Glucose (Glucose 40%) 15 - 30 gm PO UD PRN; Protocol PRN Reason: Hypoglycemia Protocol Stop: 08/04/18 12:18 Glucose (Dex4 Glucose) 4 - 8 tabs PO UD PRN; Protocol PRN Reason: Hypoglycemia Protocol Stop: 08/04/18 12:18 Hydromorphone HCl (Dilaudid) 0.5 mg IV Q3H PRN PRN Reason: Pain Stop: 07/19/18 17:11 Last Admin: 07/06/18 14:57 Dose: 0.5 mg Hydromorphone HCl (Dilaudid) 0.25 mg IV Q5M PRN PRN Reason: PACU Use Only-Pain Stop: 07/06/18 18:09 Last Admin: 07/06/18 14:53 Dose: 0.25 mg Metronidazole (Flagyl) 500 mg in 100 mls @ 100 mls/hr IV Q8H YOUSUF Stop: 07/15/18 19:59 Last Infusion: 07/06/18 12:39 Dose: 100 mls/hr Sodium Chloride (Nss 1000ml) 1,000 mls @ 100 mls/hr IV .Q10H YOUSUF Stop: 08/04/18 12:06 Last Admin: 07/06/18 07:56 Dose: 100 mls/hr Daptomycin 300 mg/ Syringe 6 mls @ 0 mls/min IV DAILY@1500 YOUSUF; Protocol Stop: 07/15/18 14:59 Last Admin: 07/05/18 15:28 Dose: 3 mls/min Insulin Aspart (Novolog Flexpen) 0 units SC Q6 YOUSUF Stop: 08/04/18 17:59 Last Admin: 07/06/18 12:00 Dose: Not Given Ketorolac Tromethamine (Toradol) 30 mg IV Q6H PRN PRN Reason: Pain Stop: 07/10/18 10:40 Last Admin: 07/06/18 07:49 Dose: 30 mg Lisinopril (Zestril) 40 mg PO DAILY [facility] Stop: 08/05/18 08:59 Last Admin: 07/06/18 09:19 Dose: Not Given Lorazepam (Ativan) 1 mg PO ONE PRN; Protocol PRN Reason: EtoH Withdrawal AWSS 6-10 Metoprolol Succinate (Toprol Xl) 25 mg PO DAILY [facility] Stop: 08/05/18 08:59 Last Admin: 07/06/18 09:19 Dose: 25 mg Miscellaneous (Carbohydrates For Hypoglycemia) 15 - 30 gm PO UD PRN PRN Reason: Hypoglycemia Treatment Stop: 08/04/18 12:18 Miscellaneous Information (Consult) 1 ea N/A UD PRN PRN Reason: Consult Stop: 08/04/18 14:11 Nifedipine (Procardia Xl) 60 mg PO BID [facility] Stop: 08/04/18 20:59 Last Admin: 07/06/18 09:19 Dose: 60 mg Ondansetron HCl (Zofran) 4 mg IV Q6H PRN PRN Reason: Nausea Stop: 08/04/18 12:06 Ondansetron HCl (Zofran) 4 mg IV ONCE PRN PRN Reason: PACU Use Only-Nausea/Vomiting Stop: 07/06/18 18:09 Thiamine HCl (Vitamin B-1) 100 mg PO QAM [facility] Stop: 08/05/18 08:59 Last Admin: 07/06/18 09:19 Dose: Not Given
--- NOTE | 2018-07-06 15:56 | Anesthesiology Progress Note ---
Date of Service July 06, 2018 Anesthesia Post Procedure Vital Signs Vital Signs: Temp Pulse Pulse Pulse Resp BP BP 07/06/18 15:50 80 16 154/80 H 07/06/18 15:45 79 12 142/85 H 07/06/18 15:40 83 21 158/90 H 07/06/18 15:35 79 13 157/81 H 07/06/18 15:30 80 15 157/84 H 07/06/18 15:25 81 15 158/85 H 07/06/18 15:20 80 13 156/88 H 07/06/18 15:15 80 16 142/90 H 07/06/18 15:10 77 14 155/83 H 07/06/18 15:05 81 15 150/88 H 07/06/18 15:04 36.8 C 81 17 160/93 H 07/06/18 15:00 80 15 161/86 H 07/06/18 14:55 36.8 C 81 15 167/85 H 07/06/18 14:50 82 17 159/88 H 07/06/18 14:45 36.8 C 81 18 152/86 H 07/06/18 14:44 36.8 C 80 17 152/86 H 07/06/18 14:43 81 16 160/87 H 07/06/18 14:40 79 17 160/84 H 07/06/18 14:35 36.9 C 81 17 160/87 H 07/06/18 14:30 82 15 162/84 H 07/06/18 14:25 36.9 C 81 15 169/88 H 07/06/18 14:20 80 14 162/93 H 07/06/18 14:15 81 19 07/06/18 14:10 82 17 160/93 H 07/06/18 14:05 83 24 162/90 H 07/06/18 14:00 79 14 159/89 H 07/06/18 13:55 80 19 148/90 H 07/06/18 13:50 79 23 155/85 H 07/06/18 13:45 80 17 154/99 H 07/06/18 13:40 83 21 149/86 H 07/06/18 13:35 86 23 141/81 H 07/06/18 13:30 88 22 151/81 H 07/06/18 13:27 95 H 22 147/89 H 07/06/18 13:26 36.9 C 98 H 97 H 24 155/113 H 147/89 H 07/06/18 12:17 36.8 C 75 20 134/76 07/06/18 12:00 99 H 07/06/18 11:55 73 07/06/18 11:50 73 07/06/18 11:45 72 07/06/18 11:40 74 07/06/18 11:39 36.7 C 68 18 128/81 07/06/18 11:35 71 07/06/18 11:30 73 07/06/18 11:25 76 07/06/18 11:20 74 07/06/18 11:15 77 07/06/18 11:10 77 07/06/18 11:05 74 07/06/18 11:00 70 07/06/18 10:55 70 07/06/18 10:50 75 07/06/18 10:45 72 07/06/18 10:40 72 07/06/18 10:35 72 07/06/18 10:30 74 07/06/18 10:25 78 07/06/18 10:20 67 07/06/18 10:15 70 07/06/18 10:10 74 07/06/18 10:05 74 07/06/18 10:00 72 07/06/18 09:55 90 07/06/18 09:50 73 07/06/18 09:45 75 07/06/18 09:40 75 07/06/18 09:35 72 07/06/18 09:30 77 07/06/18 09:25 81 07/06/18 09:20 78 07/06/18 09:15 89 07/06/18 09:10 72 07/06/18 09:05 82 07/06/18 09:00 71 07/06/18 08:56 80 07/06/18 08:00 72 07/06/18 07:36 36.6 C 68 20 126/75 07/06/18 04:12 36.4 C L 74 20 07/06/18 00:00 37.0 C 71 20 114/69 07/05/18 19:08 36.7 C 82 22 126/73 BP Pulse Ox 07/06/18 15:50 92 07/06/18 15:45 93 07/06/18 15:40 93 07/06/18 15:35 92 07/06/18 15:30 92 07/06/18 15:25 92 07/06/18 15:20 93 07/06/18 15:15 93 07/06/18 15:10 92 07/06/18 15:05 92 07/06/18 15:04 94 07/06/18 15:00 92 07/06/18 14:55 93 07/06/18 14:50 93 07/06/18 14:45 91 07/06/18 14:44 94 07/06/18 14:43 92 07/06/18 14:40 92 07/06/18 14:35 91 07/06/18 14:30 93 07/06/18 14:25 95 07/06/18 14:20 96 07/06/18 14:15 96 07/06/18 14:10 96 07/06/18 14:05 96 07/06/18 14:00 97 07/06/18 13:55 97 07/06/18 13:50 97 07/06/18 13:45 95 07/06/18 13:40 95 07/06/18 13:35 94 07/06/18 13:30 96 07/06/18 13:27 94 07/06/18 13:26 93 07/06/18 12:17 94 07/06/18 12:00 07/06/18 11:55 07/06/18 11:50 07/06/18 11:45 07/06/18 11:40 07/06/18 11:39 94 07/06/18 11:35 07/06/18 11:30 07/06/18 11:25 07/06/18 11:20 07/06/18 11:15 07/06/18 11:10 07/06/18 11:05 07/06/18 11:00 07/06/18 10:55 07/06/18 10:50 07/06/18 10:45 07/06/18 10:40 07/06/18 10:35 07/06/18 10:30 07/06/18 10:25 07/06/18 10:20 07/06/18 10:15 07/06/18 10:10 07/06/18 10:05 07/06/18 10:00 07/06/18 09:55 07/06/18 09:50 07/06/18 09:45 07/06/18 09:40 07/06/18 09:35 07/06/18 09:30 07/06/18 09:25 07/06/18 09:20 07/06/18 09:15 07/06/18 09:10 07/06/18 09:05 07/06/18 09:00 07/06/18 08:56 07/06/18 08:00 07/06/18 07:36 91 07/06/18 04:12 119/76 92 07/06/18 00:00 93 07/05/18 19:08 90 Pain Intensity Left Face: Pain Intensity: 5 Notes Mental Status: alert / awake / arousable Patient Amnestic to Procedure: Yes Nausea / Vomiting: adequately controlled Pain: adequately controlled Airway Patency, RR, SpO2: stable & adequate BP & HR: stable & adequate Hydration State: stable & adequate Anesthetic Complications: no major complications apparent
[2018-07-06] MEDS: DAPTOmycin 300 MG in SYRINGE 0 ML IV SCH (16:36)
[2018-07-07] MEDS: KETOROLAC 30 MG/ML VIAL IV PRN (00:56)
[2018-07-07] MEDS: INSULIN ASPART 100 UNITS/ML 3 ML PEN SC SCH ×3 (01:24→11:33)
[2018-07-07] MEDS: SODIUM CHLORIDE 0.9% 1000ML 1,000 ML IV SCH ×2 (02:48→12:55)
[2018-07-07] MEDS: metroNIDAZOLE 500 MG/100 ML BAG IV SCH ×2 (04:27→11:53)
[2018-07-07 06:08] LABS: Hematocrit (blood only) 37.6 % (42-52); Hemoglobin 12.8 g/dL (14.0-18.0); Mean Corpuscular Volume 92.8 fL (80-100); Mean Platelet Volume 10.3 fL (7.4-10.4); Platelet Count 158 K/uL (130-400); RDW Coefficient of Variation 12.8 % (11.5-14.5); RDW Standard Deviation 43.8 fL (36.4-46.3); Red Blood Count 4.05 M/uL (4.7-6.1); White Blood Count 9.12 K/uL (4.8-10.8)
[2018-07-07 06:44] LABS: BUN Creatinine Ratio 9.1 (10-20); Calcium 9.1 mg/dl (8.5-10.1); Creatinine Clr Calc Pharmacy 126.7 ml/min; Est GFR (African American) 116.9; Est GFR (Non-African American) 100.8; Potassium 3.8 mmol/L (3.5-5.1)
[2018-07-07] MEDS: NIFEdipine EXTENDED REL 30 MG TABCR PO SCH (07:45)
--- NOTE | 2018-07-07 07:45 | Anesthesiology Progress Note ---
Date of Service July 07, 2018 Anesthesia Post Procedure Vital Signs Vital Signs: Temp Pulse Pulse Pulse Resp BP BP 07/07/18 07:17 36.9 C 80 18 159/99 H 07/07/18 04:02 36.7 C 75 19 125/73 07/06/18 23:54 36.6 C 83 20 136/68 07/06/18 19:36 36.9 C 84 22 125/71 07/06/18 18:39 36.7 C 81 18 130/73 07/06/18 17:40 36.9 C 92 H 20 146/82 H 07/06/18 17:06 36.7 C 81 18 07/06/18 16:35 36.3 C L 93 H 18 141/81 H 07/06/18 16:30 85 07/06/18 16:20 36.9 C 76 20 138/74 07/06/18 16:05 36.9 C 87 20 153/76 H 07/06/18 15:50 80 16 154/80 H 07/06/18 15:45 79 12 142/85 H 07/06/18 15:40 83 21 158/90 H 07/06/18 15:35 79 13 157/81 H 07/06/18 15:30 80 15 157/84 H 07/06/18 15:25 81 15 158/85 H 07/06/18 15:20 80 13 156/88 H 07/06/18 15:15 80 16 142/90 H 07/06/18 15:10 77 14 155/83 H 07/06/18 15:05 81 15 150/88 H 07/06/18 15:04 36.8 C 81 17 160/93 H 07/06/18 15:00 80 15 161/86 H 07/06/18 14:55 36.8 C 81 15 167/85 H 07/06/18 14:50 82 17 159/88 H 07/06/18 14:45 36.8 C 81 18 152/86 H 07/06/18 14:44 36.8 C 80 17 152/86 H 07/06/18 14:43 81 16 160/87 H 07/06/18 14:40 79 17 160/84 H 07/06/18 14:35 36.9 C 81 17 160/87 H 07/06/18 14:30 82 15 162/84 H 07/06/18 14:25 36.9 C 81 15 169/88 H 07/06/18 14:20 80 14 162/93 H 07/06/18 14:15 81 19 07/06/18 14:10 82 17 160/93 H 07/06/18 14:05 83 24 162/90 H 07/06/18 14:00 79 14 159/89 H 07/06/18 13:55 80 19 148/90 H 07/06/18 13:50 79 23 155/85 H 07/06/18 13:45 80 17 154/99 H 07/06/18 13:40 83 21 149/86 H 07/06/18 13:35 86 23 141/81 H 07/06/18 13:30 88 22 151/81 H 07/06/18 13:27 95 H 22 147/89 H 07/06/18 13:26 36.9 C 98 H 97 H 24 155/113 H 147/89 H 07/06/18 12:17 36.8 C 75 20 134/76 07/06/18 12:00 99 H 07/06/18 11:55 73 07/06/18 11:50 73 07/06/18 11:45 72 07/06/18 11:40 74 07/06/18 11:39 36.7 C 68 18 128/81 07/06/18 11:35 71 07/06/18 11:30 73 07/06/18 11:25 76 07/06/18 11:20 74 07/06/18 11:15 77 07/06/18 11:10 77 07/06/18 11:05 74 07/06/18 11:00 70 07/06/18 10:55 70 07/06/18 10:50 75 07/06/18 10:45 72 07/06/18 10:40 72 07/06/18 10:35 72 07/06/18 10:30 74 07/06/18 10:25 78 07/06/18 10:20 67 07/06/18 10:15 70 07/06/18 10:10 74 07/06/18 10:05 74 07/06/18 10:00 72 07/06/18 09:55 90 07/06/18 09:50 73 07/06/18 09:45 75 07/06/18 09:40 75 07/06/18 09:35 72 07/06/18 09:30 77 07/06/18 09:25 81 07/06/18 09:20 78 07/06/18 09:15 89 07/06/18 09:10 72 07/06/18 09:05 82 07/06/18 09:00 71 07/06/18 08:56 80 07/06/18 08:00 72 BP Pulse Ox 07/07/18 07:17 93 07/07/18 04:02 92 07/06/18 23:54 93 07/06/18 19:36 91 07/06/18 18:39 91 07/06/18 17:40 90 07/06/18 17:06 127/82 91 07/06/18 16:35 90 07/06/18 16:30 07/06/18 16:20 91 07/06/18 16:05 93 07/06/18 15:50 92 07/06/18 15:45 93 07/06/18 15:40 93 07/06/18 15:35 92 07/06/18 15:30 92 07/06/18 15:25 92 07/06/18 15:20 93 07/06/18 15:15 93 07/06/18 15:10 92 07/06/18 15:05 92 07/06/18 15:04 94 07/06/18 15:00 92 07/06/18 14:55 93 07/06/18 14:50 93 07/06/18 14:45 91 07/06/18 14:44 94 07/06/18 14:43 92 07/06/18 14:40 92 07/06/18 14:35 91 07/06/18 14:30 93 07/06/18 14:25 95 07/06/18 14:20 96 07/06/18 14:15 96 07/06/18 14:10 96 07/06/18 14:05 96 07/06/18 14:00 97 07/06/18 13:55 97 07/06/18 13:50 97 07/06/18 13:45 95 07/06/18 13:40 95 07/06/18 13:35 94 07/06/18 13:30 96 07/06/18 13:27 94 07/06/18 13:26 93 07/06/18 12:17 94 07/06/18 12:00 07/06/18 11:55 07/06/18 11:50 07/06/18 11:45 07/06/18 11:40 07/06/18 11:39 94 07/06/18 11:35 07/06/18 11:30 07/06/18 11:25 07/06/18 11:20 07/06/18 11:15 07/06/18 11:10 07/06/18 11:05 07/06/18 11:00 07/06/18 10:55 07/06/18 10:50 07/06/18 10:45 07/06/18 10:40 07/06/18 10:35 07/06/18 10:30 07/06/18 10:25 07/06/18 10:20 07/06/18 10:15 07/06/18 10:10 07/06/18 10:05 07/06/18 10:00 07/06/18 09:55 07/06/18 09:50 07/06/18 09:45 07/06/18 09:40 07/06/18 09:35 07/06/18 09:30 07/06/18 09:25 07/06/18 09:20 07/06/18 09:15 07/06/18 09:10 07/06/18 09:05 07/06/18 09:00 07/06/18 08:56 07/06/18 08:00 Pain Intensity Left Face: Pain Intensity: 5 Head: Pain Intensity: 7 Notes Mental Status: alert / awake / arousable and participated in evaluation Patient Amnestic to Procedure: Yes Nausea / Vomiting: adequately controlled Pain: adequately controlled Airway Patency, RR, SpO2: stable & adequate BP & HR: stable & adequate Hydration State: stable & adequate Anesthetic Complications: no major complications apparent and Pt Satisfied with anesthetic care
[2018-07-07] MEDS: LISINOPRIL 40 MG TAB PO SCH (07:46)
[2018-07-07] MEDS: METOPROLOL SUCC 25MG EXT REL TAB PO SCH (07:46)
[2018-07-07] MEDS: THIAMINE HCL 100 MG TAB PO SCH (07:46)
[2018-07-07] MEDS: FOLIC ACID 1 MG TAB PO SCH (07:47)
--- NOTE | 2018-07-07 08:59 | Infectious Disease Progress Nt ---
Date of Service July 07, 2018 Assessment & Plan (1) Periapical abscess with facial involvement: continue IV abx for now, follow blood and OR cultures. pt with pcn allergy. If OR cultures negative, would suggest d/c on clinda 600mg po tid x 14 days (2) Facial cellulitis: Subjective pt off of floor at time of my exam. remains on dapto and flagyl. tolerating well. afebrile. s/p I&D. OR cultures pending, gram stain with gpr, gpc. blood cultures negative to date. wbc 9. Physical Exam 2 Vital Signs (Past 24 Hours): Last Vital Signs Temp 36.9 C 07/07/18 07:17 Pulse 80 07/07/18 07:17 Resp 18 07/07/18 07:17 BP 159/99 H 07/07/18 07:17 Pulse Ox 93 07/07/18 07:17 Results & Data Laboratory Results Microbiology 07/05/18 12:38 Blood Blood Culture - Preliminary No growth to date. 07/05/18 12:30 Blood Blood Culture - Preliminary No growth to date. 07/06/18 Unknown Face Gram Stain - Final
--- NOTE | 2018-07-07 11:42 | Progress Note ---
Date of Service July 07, 2018 Subjective 1 day post I&D Doing very well, swelling is almost gone , some drainage through the dental extractions, upper face no swelling, no periorbital edema. Moris feels great, no pain, eatting well Physical Exam 2 Vital Signs (Past 24 Hours): Last Vital Signs Temp 36.9 C 07/07/18 07:17 Pulse 80 07/07/18 07:17 Resp 18 07/07/18 07:17 BP 159/99 H 07/07/18 07:17 Pulse Ox 93 07/07/18 07:17 ENMT: Oral exam shows dental extraction sites healing well, no bleeding, very slight drainage, subperioabscess is well drained,. I removed the pen flavio drain upper left side as good drainage is coming from the sockets. Plan: OK for D/C as per medicine I will see Moris in my office next Tuesday at 9 am Reviewed Oral care and diet as tolerated.
--- NOTE | 2018-07-07 13:17 | Operative Report ---
DATE OF OPERATION: 07/06/2018 OPERATING ROOM ADMITTING DIAGNOSES: Acute left upper face swelling involving the inferior orbital area of the left cheek, the periorbital area surrounding both upper and lower eyelids, the cuspid area of the mouth and a subperiosteal swelling. In addition, there were 2 infected teeth that would be teeth numbers 12 and 13. Acute facial cellulitis and abscess from infected teeth. POSTOPERATIVE DIAGNOSES: Acute left upper face swelling involving the inferior orbital area of the left cheek, the periorbital area surrounding both upper and lower eyelids, the cuspid area of the mouth and a subperiosteal swelling. In addition, there were 2 infected teeth that would be teeth numbers 12 and 13. Acute facial cellulitis and abscess from infected teeth. OPERATION: Drainage of multiple facial spaces involving the infraorbital and the periorbital and cuspid area as well as the subperiosteal area and palate of the left maxilla. Drainage of multiple facial planes secondary to dental abscess. DESCRIPTION OF PROCEDURE: After this patient was cleared to undergo general anesthesia, he was brought down to the Operating Room, placed under general anesthesia via an orotracheal intubation. At this time, the appropriate time-out was taken. The appropriate patient, equipment, antibiotics and all other medications and orders were found to be correct. It was at this time that the operation began. The patient's facial area was prepped in the usual manner with Betadine and then after it was cleansed, the facial area where the infection on the upper left side was appropriately isolated with sterile towels. At this time, the operation began. There was a lot of edema and gross swelling involving the left facial area from below the inferior orbital rim down into the mouth. There was a lot of fluctuance as well. With the use of a 15 blade, a small incision was made in the mucobuccal fold to drain the subperiosteal abscess. At this time, a lot of purulent drainage was encountered. This drainage was cultured for aerobic and anaerobic bacteria. We also will do a culture and sensitivity to ensure that we had the appropriate antibiotic for postoperative management. At this time with the use of a hemostat, I was able to place the hemostat along the anterior wall of the maxillary sinus and up to the inferior orbital rim. Great care was taken to avoid any injury to the infraorbital nerve. By opening and closing the hemostat a few times, I was able to open up a few more pockets of the infection in this area. Once this was done, I then carefully removed the 2 affected teeth that would be tooth #12 and tooth #13. Once these teeth were removed, I then curetted the sockets. I now turned my attention to the palatal aspect. Once again with the use of a small periosteal elevator, I was able to reflect the mucoperiosteal tissue from the palatal bone. By doing so, I was able to open up another loculation of infected tissue and a lot of pus was extruded from this area. At this time, a [place] drain was carefully placed and directed up to the area of the inferior orbital rim. At this time, I felt that was an adequate enough drainage due to the fact that we had 2 extraction sites with 2 very large sockets to establish drainage. Using a 2-0 chromic suture, I sutured the drain into place. At this time, I inspected all the other teeth and made sure that there was no other gross periodontal disease that would be causing another incident like the one that the patient experienced earlier in the week. I now irrigated the oral cavity. I then suctioned it dried. We then made sure that we had no clots in the nasopharyngeal area. Once I was satisfied with this, I placed gauze in the area to maintain some pressure. I also gave the patient some local anesthesia in the form of Marcaine to allow for some postoperative pain control. The patient was now allowed to recover in the usual fashion. Upon full recovery, the nurse ocean biologist and the anesthesiologist were able to remove the orotracheal tube. After the patient was stabilized, he was positioned into the hospital litter and carefully taken to the Recovery Room breathing in satisfactory condition with all vital signs stable. I evaluated my patient in the Operating Room. He was doing well. He was breathing well. His vital signs were very stable and the drain was in place. I reviewed with his the fact that we will keep the patient in the hospital until we are certain that all the drainage has ceased, the infection is under control and it is safe to send him home on oral antibiotics. I attest to the content of the Intraoperative Record and any orders documented therein. Any exception s are noted below.
--- NOTE | 2018-07-07 13:20 | Hospitalist Progress Note ---
Date of Service July 07, 2018 Assessment & Plan (1) Periapical abscess with facial involvement: This is a 62yo M with a PMH of HTN, DM II, CAD (s/p stents to LAD and RCA in 2014 at [place]), alcohol and tobacco dependence who presents with worsening facial swelling amd was found to have periapical abscess with cellulitic changes to face. -Seen early this morning at 0100 in ED and given PO Clinda at discharge -Returned a few hours later with worsening edema, facial pain -CT of face with odontogenic disease with large periapical cyst and associated anterior cortical dehiscence involving the left first maxillary bicuspid. Small adjacent peripherally enhancing 1.3 cm abscess. Moderate cellulitis changes about the left face extending from the infraorbital tissues into the left cheek and left jaw. Additionally, there is associated infectious or inflammatory myositis about the left cheek musculature -Hemodynamically stable, afebrile -Started on intravenous Vanco Levaquin and Flagy -Appreciate ID input and recommendation -Antibiotics have been changed to daptomycin and Flagyl -Appreciate input from faciomaxillary surgery -Keep NPO for now, IV fluids -Status post IND of left dental abscess and extraction of tooth #12 and 13 -Clinically much improved -Denies any pain (2) CAD (coronary artery disease): H/o NSTEMI with stents x 2 in [place] in 2014 -Continue Toprol, aspirin, statin -No acute symptoms (3) Chronic back pain: Takes Hydrocodone 5mg QID PRN at home (4) Diabetes mellitus, type II: Most recent a1c of 6.4 in July 2017 -Will repeat a1c -Hold metformin -SSI while NPO -BSG checks AC HS (5) HTN (hypertension): Normotensive -Took AM lisinopril and nifedipine prior to arrival (6) Alcohol dependence: Endorses 3-4 glasses of wine daily -Possible etoh withdrawal during previous admission -At risk protocol, MV, folic acid, thiamine DVT Ppx: SCDs for now Code status: DNR per discussion with patient, living will PCP: Zachary Dispo: Plan to return home once medically stable. Likely home this afternoon Subjective He is a 62yo M with a PMH of HTN, DM II, CAD (s/p stents to LAD and RCA in 2014 at [place]), alcohol and tobacco dependence who presents with worsening facial swelling amd was found to have periapical abscess with cellulitis and abscess left cheek. 07/06 The patient was seen and examined in medical His symptoms of left facial swelling and pain are improved He denies any fever and/or chills He has been able to swallow liquids Is going to have surgery sometime this afternoon 07/07 Patient was seen and examined in medical floor Is a status post left-sided dental extraction #12 in #13 and I&D of associated abscess Has been feeling a lot better and tolerating diet Wants to go home Physical Exam 2 Vital Signs (Past 24 Hours): Last Vital Signs Temp 36.8 C 07/07/18 11:31 Pulse 71 07/07/18 11:31 Resp 18 07/07/18 11:31 BP 139/87 07/07/18 11:31 Pulse Ox 92 07/07/18 11:31 Constitutional: WD/WN, vitals as above Eyes: + eyelid abnormality (Almost normalized) ENMT: Mouth: + oral mucosal abnormality (Almost normalized) Neck: + submandibular swelling (Almost gone) Cardiovascular: Rate/Rhythm: regular rate and regular rhythm Heart Sounds: normal S1 and normal S2 Gastrointestinal (Abdomen): normal bowel sounds, soft, nontender, no hepatosplenomegaly Results & Data Laboratory Results Short CBC 07/07/18 Range/Units 05:51 WBC 9.12 (4.8-10.8) K/uL Hgb 12.8 L (14.0-18.0) g/dL Hct 37.6 L (42-52) % Plt Count 158 (130-400) K/uL BMP 07/07/18 05:51 Sodium 141 Potassium 3.8 Chloride 106 Carbon Dioxide 29 BUN 7 Creatinine 0.73 Glucose 118 H Calcium 9.1 Medications Administered Current Inpatient Medications Atorvastatin Calcium (Lipitor) 80 mg PO HS YOUSUF Stop: 08/04/18 20:59 Last Admin: 07/06/18 21:07 Dose: 80 mg Dextrose (Dextrose 50%) 25 - 50 ml IV UD PRN; Protocol PRN Reason: Hypoglycemia Protocol Stop: 08/04/18 12:18 Folic Acid (Folvite) 1 mg PO QAM YOUSUF Stop: 08/05/18 08:59 Last Admin: 07/07/18 07:47 Dose: 1 mg Glucagon (Glucagen) 1 mg SQ UD PRN; Protocol PRN Reason: Hypoglycemia Protocol Stop: 08/04/18 12:18 Glucose (Glucose 40%) 15 - 30 gm PO UD PRN; Protocol PRN Reason: Hypoglycemia Protocol Stop: 08/04/18 12:18 Glucose (Dex4 Glucose) 4 - 8 tabs PO UD PRN; Protocol PRN Reason: Hypoglycemia Protocol Stop: 08/04/18 12:18 Hydromorphone HCl (Dilaudid) 0.5 mg IV Q3H PRN PRN Reason: Pain Stop: 07/19/18 17:11 Last Admin: 07/06/18 18:41 Dose: 0.5 mg Metronidazole (Flagyl) 500 mg in 100 mls @ 100 mls/hr IV Q8H YOUSUF Stop: 07/15/18 19:59 Last Infusion: 07/07/18 12:55 Dose: Infused Sodium Chloride (Nss 1000ml) 1,000 mls @ 100 mls/hr IV .Q10H YOUSUF Stop: 08/04/18 12:06 Last Admin: 07/07/18 12:55 Dose: 100 mls/hr Daptomycin 300 mg/ Syringe 6 mls @ 0 mls/min IV DAILY@1500 YOUSUF; Protocol Stop: 07/15/18 14:59 Last Admin: 07/06/18 16:36 Dose: 6 mls/min Insulin Aspart (Novolog Flexpen) 0 units SC ACHS [facility] Stop: 08/06/18 07:29 Last Admin: 07/07/18 11:33 Dose: Not Given Ketorolac Tromethamine (Toradol) 30 mg IV Q6H PRN PRN Reason: Pain Stop: 07/10/18 10:40 Last Admin: 07/07/18 00:56 Dose: 30 mg Lisinopril (Zestril) 40 mg PO DAILY YOUSUF Stop: 08/05/18 08:59 Last Admin: 07/07/18 07:46 Dose: 40 mg Lorazepam (Ativan) 1 mg PO ONE PRN; Protocol PRN Reason: EtoH Withdrawal AWSS 6-10 Metoprolol Succinate (Toprol Xl) 25 mg PO DAILY [facility] Stop: 08/05/18 08:59 Last Admin: 07/07/18 07:46 Dose: 25 mg Miscellaneous (Carbohydrates For Hypoglycemia) 15 - 30 gm PO UD PRN PRN Reason: Hypoglycemia Treatment Stop: 08/04/18 12:18 Miscellaneous Information (Consult) 1 ea N/A UD PRN PRN Reason: Consult Stop: 08/04/18 14:11 Nifedipine (Procardia Xl) 60 mg PO BID [facility] Stop: 08/04/18 20:59 Last Admin: 07/07/18 07:45 Dose: 60 mg Ondansetron HCl (Zofran) 4 mg IV Q6H PRN PRN Reason: Nausea Stop: 08/04/18 12:06 Thiamine HCl (Vitamin B-1) 100 mg PO QAM [facility] Stop: 08/05/18 08:59 Last Admin: 07/07/18 07:46 Dose: 100 mg
[2018-07-07] MEDS: DAPTOmycin 300 MG in SYRINGE 0 ML IV SCH (14:20)
--- NOTE | 2018-07-08 08:02 | Discharge Summary ---
Date of Service July 08, 2018 Admission HPI Per Admitting Provider This is a 62yo M with a PMH of HTN, DM II, CAD (s/p stents to LAD and RCA in 2014 at [place]), alcohol and tobacco dependence who presents with worsening facial swelling. Had dental cleaning last week and developed pain in L upper molar over the weekend. Started to notice swelling in gums and left cheek yesterday afternoon. Came into ED at 0100 with swelling to gums and left side of face and was discharged home on PO Clinda with instruction to return if condition worsens. Returned this morning at 0630 with swelling extending to R eye and constant tight facial pain. Denies fevers, chills, chest pain, shortness of breath or drainage. CT of face with odontogenic disease with large periapical cyst and associated anterior cortical dehiscence involving the left first maxillary bicuspid. Small adjacent peripherally enhancing 1.3 cm abscess. Moderate cellulitis changes about the left face extending from the infraorbital tissues into the left cheek and left jaw. Additionally, there is associated infectious or inflammatory myositis about the left cheek musculature. Hemodynamically stable, afebrile. Dr Olivarez was called by ED provider and will see patient later today. Received dose of IV Clinda. Has allergy to PCN (rash as a child). Admission Exam Per Admitting Provider Vital Signs (Past 24 Hours): Last Vital Signs Temp 37 C 07/05/18 06:43 Pulse 68 07/05/18 08:28 Resp 16 07/05/18 08:28 BP 141/85 H 07/05/18 08:28 Pulse Ox 97 07/05/18 08:28 Physical Exam: General Appearance: WD/WN, no acute distress Head: normocephalic, atraumatic Eyes: normal inspection, PERRL, EOMI ENT: hearing grossly normal, poor dentition, swelling from left side of mouth to cheek and up and including the infraorbital rim. Warm and erythematous, no drainage. Neck: supple, no JVD, L cervical and mandibular lymphadenopathy Respiratory/Chest: lungs clear to auscultation. No wheezes, rales or rhonci. No respiratory distress or accessory muscle use Cardiovascular: regular rate, rhythm, no murmur, normal peripheral pulses Abdomen/GI: normal bowel sounds, soft, non-tender to palpation Extremities/Musculoskelatal: normal inspection, no calf tenderness, normal capillary refill, no pedal edema Neurologic/Psych: alert, normal mood/affect, oriented x 3 Skin: normal color, warm/dry. Principal Diagnosis Periapical abscess status post x2 teeth extraction, #12 and #13 with I and D Discharge Exam Constitutional WD/WN, vitals as above Eyes + eyelid abnormality (Almost normalized) ENMT Mouth: + oral mucosal abnormality (Almost normalized) Neck + submandibular swelling (Almost gone) Cardiovascular Rate/Rhythm: regular rate and regular rhythm Heart Sounds: normal S1 and normal S2 Gastrointestinal (Abdomen) normal bowel sounds, soft, nontender, no hepatosplenomegaly Discharge Data Allergies Allergy/AdvReac Type Severity Reaction Status Date / Time celecoxib Allergy Intermediate SOB/ANAPHYL Unverified 07/05/18 01:51 AXIS Penicillins Allergy Mild QUESTIONAL Verified 07/05/18 01:51 INTOLERANCE (PER MD) Consultations 07/05/18 13:07 Consult Infectious Diseases Routine Procedures Performed Operation Date: 07/06/18 11:40 Actual Procedures s Extraction of Teeth x2 (#12 and #13)(Not Applicable) - Raulito Olivarez DMD p Incision and Drainage Left Side Infected Infraorbital and Periorbital Space Infection(Not Applicable) - Raulito Olivarez DMD Ordered Studies 07/05/18 06:55 CT facial bones w con Stat Hospital Course (1) Periapical abscess with facial involvement: This is a 62yo M with a PMH of HTN, DM II, CAD (s/p stents to LAD and RCA in 2014 at [place]), alcohol and tobacco dependence who presents with worsening facial swelling amd was found to have periapical abscess with cellulitic changes to face. -Seen early this morning at 0100 in ED and given PO Clinda at discharge -Returned a few hours later with worsening edema, facial pain -CT of face with odontogenic disease with large periapical cyst and associated anterior cortical dehiscence involving the left first maxillary bicuspid. Small adjacent peripherally enhancing 1.3 cm abscess. Moderate cellulitis changes about the left face extending from the infraorbital tissues into the left cheek and left jaw. Additionally, there is associated infectious or inflammatory myositis about the left cheek musculature -Hemodynamically stable, afebrile -Started on intravenous Vanco Levaquin and Flagy -Appreciate ID input and recommendation -Antibiotics have been changed to daptomycin and Flagyl -Appreciate input from faciomaxillary surgery -Keep NPO for now, IV fluids -Status post IND of left dental abscess and extraction of tooth #12 and 13 -Clinically much improved -Denies any pain (2) CAD (coronary artery disease): H/o NSTEMI with stents x 2 in [place] in 2015 -Continue Toprol, aspirin, statin -No acute symptoms (3) Chronic back pain: Takes Hydrocodone 5mg QID PRN at home (4) Diabetes mellitus, type II: Most recent a1c of 6.4 in July 2017 -Will repeat a1c -Hold metformin -SSI while NPO -BSG checks AC HS (5) HTN (hypertension): Normotensive -Took AM lisinopril and nifedipine prior to arrival (6) Alcohol dependence: Endorses 3-4 glasses of wine daily -Possible etoh withdrawal during previous admission -At risk protocol, MV, folic acid, thiamine DVT Ppx: SCDs for now Code status: DNR per discussion with patient, living will PCP: Zachary Dispo: Plan to return home once medically stable. Likely home this afternoon Total Time Total Time Spent Total Time Spent (In Minutes): 35 minutes Total Time Includes: Examination of the Patient, Discharge Planning, Medication Reconciliation and Communication With Other Providers Discharge Plan Discharge Items Patient Disposition: Home - Self-Care Reason For Visit: PROGRESSIVE FACIAL SWELLING,CELLULITIS Discharge Diagnosis: Periapical abscess status post x2 teeth extraction, #12 and #13 with I and D Condition: Good Discharge Goals: Decrease discomfort, Improve disease control and Improve function Activity: Resume your previous activity Non-emergency contact: Primary Care Provider Call non-emergency contact if: you have any medication questions and your symptoms worsen Follow-up/Referrals: SELF,REFERRED [Staff Physician] - (Please keep appointment with your primary care physician as a scheduled Please keep appointment with Dr. Olivarez as a scheduled) Diet: Heart Healthy Addtl Provider Instructions: Drink more fluid to keep the mouth moist Prescriptions: Continue atorvastatin 80 mg tablet 80 mg PO HS RF: 0 nifedipine 60 mg tablet extended release 24hr 60 mg PO BID RF: 0 metoprolol succinate 25 mg tablet extended release 24 hr 25 mg PO DAILY RF: 0 lisinopril 40 mg tablet 40 mg PO DAILY RF: 0 metformin 1,000 mg tablet 1,000 mg PO DAILY RF: 0 clindamycin HCl 300 mg capsule 300 mg PO Q8H Qty: 29 RF: 0 hydrocodone-acetaminophen 5-325 mg Tablet 1 tab PO QID PRN (Reason: Pain) RF: 0 aspirin 81 mg Tablet,Delayed Release (Dr/Ec) 81 mg PO DAILY RF: 0 Stand-Alone Forms: [facility] Discharge Orders: Discharge Order (Routine); Ordered 07/07/18 Ordered By: Nunu Whitney Admission Data Admit Date/Time: 07/05/18 10:44 Attending Provider: Nunu Whitney Admit Provider: Elian Gil Primary Care Provider: Kd Wylie Other Providers: Elian Gil ; Kate Cortez Service: Telemetry Other Interventions: Discharge Summary Assessment (RN) Last Done: 07/07/18 15:28 DC Date/Time DO NOT enter until pt leaves facility: 07/07/18 15:55
== END 2018-07-07 15:55 | disposition home or self-care (01) | DRG 638 ==
LOC: ED 06:39 → SUATTDRO 10:44 → 2N 10:44